=== PATIENT | male | born 1985 | race African-American/Black ===

== ENCOUNTER → 2017-08-30 | Outpatient (REF) | payer OTHER, MEDICARE, MEDICAID ==
[2017-09-02 14:12] LABS: LEVETIRACETAM (KEPPRA) 13.3 ug/mL (10.0-40.0)
== END ==
LOC: M LAB REF 12:11
DX: G40.909 Epilepsy, unspecified, not intractable, without status epilepticus (principal)
CPT/HCPCS: 80180

== ENCOUNTER → 2018-02-28 | Outpatient (REF) | payer OTHER, MEDICARE, MEDICAID ==
[2018-03-04 08:06] LABS: LEVETIRACETAM (KEPPRA) 13.9 ug/mL (10.0-40.0)
== END ==
LOC: M LAB REF 13:54
DX: G40.909 Epilepsy, unspecified, not intractable, without status epilepticus (principal)

== ENCOUNTER → 2018-03-24 | Outpatient (REF) | payer OTHER, MEDICAID ==
[2018-03-26 08:55] LABS: HEPATITIS C VIRUS ABY INDEX < 0.0 INDEX (<0.8)
== END ==
LOC: M LAB REF 16:27
DX: Z11.59 Encounter for screening for other viral diseases (principal)

== ENCOUNTER → 2018-09-02 | Outpatient (REF) | payer OTHER, MEDICAID | LOC: M LAB REF 11:56 | PROVIDERS: ATTEND Internal Medicine | DX: G40.909 Epilepsy, unspecified, not intractable, without status epilepticus (principal) ==

== ENCOUNTER → 2025-03-08 | Outpatient (CLI) | payer OTHER, MEDICAID | LOC: M RAD 09:10 | PROVIDERS: ATTEND Psychiatry & Neurology Neurology | DX: G91.1 Obstructive hydrocephalus (principal); G40.209 Localization-related (focal) (partial) symptomatic epilepsy and epileptic syndromes with complex partial seizures, not intractable, without status epilepticus; G40.309 Generalized idiopathic epilepsy and epileptic syndromes, not intractable, without status epilepticus ==